=== PATIENT | male | born 1995 | race Hispanic/Latino ===

== ENCOUNTER 2016-05-16 22:15 | Inpatient (IN) | payer OTHER ==
[~2016-05-16] VITALS: Ht 185.4 cm; Wt 88.5 kg
[2016-05-16] MEDS: SENOKOT S TAB PO SCH (03:01)
[2016-05-16] MEDS ORDERED: ONDANSETRON 4MG/2ML VIAL (J2405) As Ordered ONE (23:10)
[2016-05-16] MEDS ORDERED: KETOROLAC 30 MG/ML VIAL (J1885) As Ordered ONE (23:10)
[2016-05-16 23:44] LABS: BASO % 0.4 % (0.0-1.0); EOS # 0.2 K/mm3 (0.0-0.50); EOS % 1.5 % (0.0-3.0); LARGE UNSTAINED CELL # 0.1 K/mm3 (0.0-0.4); LARGE UNSTAINED CELL % 1.4 % (0.0-4.0); LYMPH # 1.7 K/mm3 (1.5-6.5); LYMPH % 17.2 % (24.0-44.0); MEAN CORPUSCULAR HEMOGLOBIN 30.8 pg (27.0-33.0); MEAN CORPUSCULAR VOLUME 85.7 fl (80.0-96.0); MONO # 0.5 K/mm3 (0.0-0.8); NEUTROPHILS # 7.5 K/mm3 (1.8-7.7); NEUTROPHILS % 74.5 % (36.0-66.0); PLATELET COUNT, AUTOMATED 204 k/mm3 (150-450); RED CELL DISTRIBUTION WIDTH 12.1 % (11.5-14.5); WHITE BLOOD COUNT 10.1 K/mm3 (4.0-10.0)
[2016-05-16] MEDS ORDERED: ZANT1TAB PO (23:55)
[2016-05-16] MEDS ORDERED: CIPR500T89 PO (23:55)
[2016-05-16] MEDS ORDERED: TUMS500C PO (23:55)
[2016-05-16 23:59] LABS: ALBUMIN 4.4 GM/DL (3.2-5.2); ALBUMIN/GLOBULIN RATIO 1.22 (1.00-1.93); ALKALINE PHOSPHATASE 72 U/L (45-117); ALT/SGPT 29 U/L (12-78); AMYLASE 50 U/L (25-115); ANION GAP 7 MEQ/L (8-16); AST/SGOT 26 U/L (15-37); BILIRUBIN,DIRECT < 0.1 MG/DL (0.0-0.2); BILIRUBIN,TOTAL 0.5 MG/DL (0.2-1.0); BLOOD UREA NITROGEN 13 MG/DL (7-18); CARBON DIOXIDE LEVEL 28 MEQ/L (21-32); CHLORIDE LEVEL 104 MEQ/L (98-107); CREATININE FOR GFR 0.87 MG/DL (0.70-1.30); GLUCOSE, FASTING 98 MG/DL (70-105); POTASSIUM SERUM 3.7 MEQ/L (3.5-5.1); SODIUM LEVEL 139 MEQ/L (136-145)
[2016-05-17] VITALS (8 sets, daily range): BP systolic 105–152; BP diastolic 56–87
--- NOTE | 2016-05-17 00:10 | REPUSA ---
Clinical history: Right upper quadrant pain. Findings: The pancreas is limited in visualization secondary to overlying bowel gas, but appears moni sly unremarkable. The liver demonstrates uniform echotexture and echogenicity, with no mass lesions. The gallbladder is unremarkable. The common bile duct measures 3 mm and is within normal limits. The right kidney measures 11.4 cm in length and is unremarkable. There is no ascites. Impression: Unremarkable ultrasound examination of the right upper quadrant.
[2016-05-17] MEDS ORDERED: ZOSYN 3.375 GM VIAL (J2543) As Ordered ONE (00:11)
[2016-05-17] MEDS ORDERED: ONDANSETRON 4MG/2ML VIAL (J2405) IV PRN ×2 (00:45→19:15)
[2016-05-17] MEDS ORDERED: PERCOCET 5MG/325MG TAB PO PRN ×3 (00:45→19:15)
[2016-05-17] MEDS ORDERED: MORPHINE 4 MG/ML 1ML SYRINGE IV PRN (00:45)
[2016-05-17] MEDS ORDERED: ACETAMINOPHEN TAB 650MG DOSE (2X325MG) PO PRN (00:45)
--- NOTE | 2016-05-17 01:19 | EDDOCDS ---
Physician Documentation [facility] Name: Krissy Adhikari Age: 20 yrs Sex: Male : 1995 Arrival Date: 05/16/2016 Time: 22:15 Bed I3 / M3 Private MD: Other - Complete Info On Cds Disposition: 05/17/16 00:02 Hospitalization ordered by Miguel Valencia for Inpatient Admission. Preliminary diagnosis is Acute cholecystitis. - Bed requested for 5 Mendez. - Status is Inpatient Admission. nn1 - Condition is Stable. - Problem is new. - Symptoms have improved. Historical: - Allergies: no known allergies; - Home Meds: 1. Zantac 150 mg Oral cap 1 cap PRN (Last dose: 05/16/2016 20:00) 2. Tums 200 mg calcium (500 mg) Oral chew 500 mg as needed (Last dose: 05/15/2016) 3. Cipro 500 mg Oral tab 1 tab 2 times per day (Last dose: 05/16/2016 18:00) - PMHx: none; - PSHx: none; - Social history: Smoking status: Patient uses tobacco products, heavy tobacco smoker. Patient/guardian denies using alcohol, street drugs, No barriers to communication noted, The patient speaks fluent Zambian, Speaks appropriately for age. - Family history: No immediate family members are acutely ill. - : The pt / caregiver states he / she is not on anticoagulants. Home medication list is obtained from the patient. - Exposure Risk Screening:: None identified. Vital Signs: 05/16 22:17 BP 154 / 77; Pulse 67; Resp 18; Temp 97.0(O); Pulse Ox 100% on R/A; Weight 88.45 kg / gr2 195 lbs (R); Height 6 ft. 1 in. (185.42 cm) (R); Pain 8/10; 05/17 01:09 BP 134 / 80; Pulse 59; Resp 18; Temp 98.5(TE); Pulse Ox 99% on R/A; Pain 0/10; nn1 05/16 22:17 Body Mass Index 25.73 (88.45 kg, 185.42 cm) gr2 MDM: 05/16 23:06 NS 0.9% 1000 ml IV at bolus once ordered. ef1 23:07 Ondansetron 4 mg IVP once ordered. ef1 23:07 ketorolac 30 mg IVP once ordered. ef1 23:07 IV Saline Lock ordered. ef1 23:07 Undress patient appropriately for examination ordered. ef1 23:07 Gallbladder US Ordered. EDMS 23:07 Amylase Ordered. EDMS 23:07 Basic Metabolic Profile Ordered. EDMS 23:07 CBC with Diff Ordered. EDMS 23:07 Lipase Ordered. EDMS 23:07 Liver Profile Ordered. EDMS 23:08 NOTHING BY MOUTH+DIET ordered. EDMS 23:37 Financial registration complete. slh 23:46 CBC with Diff Reviewed. ef1 23:47 BED REQUEST+ADM ordered. EDMS 05/17 00:01 Piperacillin-Tazobactam 3.375 grams IVPB once over 30 mins; dilute in 50mL of NS or D5W ef1 ordered. 00:01 Basic Metabolic Profile Reviewed. ef1 00:01 Amylase Reviewed. ef1 00:01 Lipase Reviewed. ef1 00:01 Liver Profile Reviewed. ef1 00:24 [facility] Payment Agreement was scanned into [employer] and attached to record. slh 00:43 CBC WITH DIFFERENTIAL Ordered. EDMS 00:43 COMPLETE COMPHRENSIVE METABOLI Ordered. EDMS 00:44 Admission / Observation Status ordered. EDMS 00:45 NPO DIET ordered. EDMS Administered Medications: 05/16 23:24 Drug: NS 0.9% 1000 ml [sodium chloride 0.9 % intravenous solution] Route: IV; Rate: nn1 bolus; Site: left antecubital; 23:25 Drug: Ondansetron 4 mg [ondansetron HCl 2 mg/mL intravenous solution (2 mL)] Route: nn1 IVP; Site: left antecubital; 23:25 Drug: ketorolac 30 mg [ketorolac 30 mg/mL (1 mL) injection solution (1 mL)] Route: IVP; nn1 Site: left antecubital; 05/17 00:21 Drug: Piperacillin-Tazobactam 3.375 grams [piperacillin-tazobactam 3.375 gram nn1 intravenous solution] Route: IVPB; Infused Over: 30 mins; Site: left antecubital; 01:19 Follow up: IV Status: Completed infusion nn1 Signatures: Dispatcher [employer] EDMS Paulina Paez PA-C PA-C ef1 Argelia Crabtree, RN RN ttb McLear, Tiesha, REED OR WIND INSTRUMENT REPAIRER REED OR WIND INSTRUMENT REPAIRER tmm1 Perlita Blanco Nikkole,RN RN nn1 The chart was reviewed and I authenticate all verbal orders and agree with the evaluation and treatment provided.Attachments: 00:24 [facility] Payment Agreement [facility] MTDD
--- NOTE | 2016-05-17 01:19 | EDDOCDS ---
Nurse's Notes [facility] Name: Krissy Adhikari Age: 20 yrs Sex: Male : 1995 Arrival Date: 05/16/2016 Time: 22:15 Bed I3 / M3 Private MD: Other - Complete Info On Cds Diagnosis: Acute cholecystitis Presentation: 05/16 22:29 Presenting complaint: Patient states: abd pain x1 month. Intermittent pain. Returned 2 ttb hrs ago. Epigastric region. Laying on couch when pain started. Denies n/v/d/c. Risk factors: the patient reports not having a history of previous torsion. Adult Sepsis Screening: The patient does not have new or worsening altered mentation. Patient's respiratory rate is less than 22. Systolic blood pressure is greater than 100. Patient has a qSOFA score of 0- Negative Sepsis Screen. Suicide/Homicide risk assessment- the patient denies having any suicidal and/or homicidal ideations and does not present with any other emotional, behavioral or mental health complaints. 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 Transition of care: patient was not received from another setting of care. 22:29 Acuity: FEI Level 3 ttb 22:29 Method Of Arrival: Walkin/Carried/Asstd ttb Triage Assessment: 22:32 General: Appears in no apparent distress, well nourished, well groomed, Behavior is ttb appropriate for age, cooperative, pleasant. Pain: Location: 8/10 mid upper /epigastric region Pain does not radiate. Quality of pain is described as pressure, sharp. HIV screening NA for this visit Offered previously. Neurological: Level of Consciousness is awake, alert. Cardiovascular: Chest pain is denied. Respiratory: No deficits noted. Airway is patent Respiratory effort is even, unlabored, Denies cough, shortness of breath. GI: Reports upper abd pain, Denies constipation, diarrhea, nausea, vomiting. Derm: Skin is normal. Injury Description: No known injury. Historical: - Allergies: no known allergies; - Home Meds: 1. Zantac 150 mg Oral cap 1 cap PRN (Last dose: 05/16/2016 20:00) 2. Tums 200 mg calcium (500 mg) Oral chew 500 mg as needed (Last dose: 05/15/2016) 3. Cipro 500 mg Oral tab 1 tab 2 times per day (Last dose: 05/16/2016 18:00) - PMHx: none; - PSHx: none; - Social history: Smoking status: Patient uses tobacco products, heavy tobacco smoker. Patient/guardian denies using alcohol, street drugs, No barriers to communication noted, The patient speaks fluent South Korean, Speaks appropriately for age. - Family history: No immediate family members are acutely ill. - : The pt / caregiver states he / she is not on anticoagulants. Home medication list is obtained from the patient. - Exposure Risk Screening:: None identified. Screenin/06 01:08 Screening information is obtained from the patient. Fall risk: No risks identified. nn1 Assistance ADL's: requires no assistance with activities of daily living. Abuse/DV Screen: The patient / caregiver reports he/she is: not in a situation that causes fear, pain or injury. Nutritional screening: No deficits noted. Advance Directives: There is no active DNR order. home support is adequate. Assessment: 05/16 23:25 General: Appears in no apparent distress, comfortable. Pain: Location: epigastric area, nn1 umbilical area and suprapubic area Pain Pain does not radiate. Quality of pain is described as pressure, sharp, Pain began 1830. Neurological: Level of Consciousness is awake, alert, Oriented to person, place, time. Respiratory: Airway is patent Respiratory effort is even, unlabored, Respiratory pattern is regular, symmetrical. GI: Abdomen is flat, non- distended Bowel sounds present X 4 quads. Abd is soft X 4 quads. GI: Denies diarrhea, nausea, vomiting. Derm: Skin is pink, warm & dry. 05/17 00:21 Reassessment: Patient states feeling better. Patient states symptoms have improved. nn1 General: Appears in no apparent distress, comfortable. Respiratory: Airway is patent Respiratory effort is even, unlabored, Respiratory pattern is regular, symmetrical. 00:21 General: Patient reports last eating at 1830. nn1 01:08 General: Appears in no apparent distress, comfortable, Behavior is appropriate for age, nn1 cooperative. Pain: Denies pain. Neurological: Level of Consciousness is awake, alert, Oriented to person, place, time. Respiratory: Airway is patent Respiratory effort is even, unlabored, Respiratory pattern is regular, symmetrical. Derm: Skin is pink, warm & dry. Vital Signs: 05/16 22:17 BP 154 / 77; Pulse 67; Resp 18; Temp 97.0(O); Pulse Ox 100% on R/A; Weight 88.45 kg gr2 (R); Height 6 ft. 1 in. (185.42 cm) (R); Pain 8/10; 05/17 01:09 BP 134 / 80; Pulse 59; Resp 18; Temp 98.5(TE); Pulse Ox 99% on R/A; Pain 0/10; nn1 05/16 22:17 Body Mass Index 25.73 (88.45 kg, 185.42 cm) gr2 Vitals: 05/16 22:17 Log In Time: May 16, 2016 at 22:17. gr2 ED Course: 22:16 Patient visited by Roshan Roldan. gr2 22:16 Patient moved to Waiting gr2 22:17 Other - Complete Info On Cds is Private Physician. gr2 22:18 Patient visited by Roshan Roldan. gr2 22:18 Patient moved to Pre RCE gr2 22:31 Triage Initiated ttb 22:33 Patient visited by Argelia Crabtree RN. ttb 22:36 Patient moved to Triage 2 jmb 22:52 Paulina Paez PA-C is PHCP. ef1 22:52 Martin Gordon DO is Attending Physician. ef1 22:54 Patient visited by Paulina Paez PA-C. ef1 23:07 Patient moved to I3 / M3 jmb 23:25 Liver Profile Sent. nn1 23:25 Lipase Sent. nn1 23:25 CBC with Diff Sent. nn1 23:25 Basic Metabolic Profile Sent. nn1 23:25 Amylase Sent. nn1 23:27 Patient visited by Roxy Barcenas RN. nn1 23:27 Inserted saline lock: 20 gauge in left antecubital area and blood collected. The nn1 patient tolerated the procedure well. 05/17 00:01 Patient visited by Paulina Paez PA-C. ef1 00:02 Miguel Valencia MD is Hospitalizing Provider. ef1 00:24 [facility] Payment Agreement was scanned into [employer] and attached to record. h 00:33 Gallbladder US Returned. EDMS 01:10 The patient / caregiver is instructed regarding the plan of care and ED course. nn1 01:10 No procedures done that require assistance. nn1 Administered Medications: 05/16 23:24 Drug: NS 0.9% 1000 ml [sodium chloride 0.9 % intravenous solution] Route: IV; Rate: nn1 bolus; Site: left antecubital; 23:25 Drug: Ondansetron 4 mg [ondansetron HCl 2 mg/mL intravenous solution (2 mL)] Route: nn1 IVP; Site: left antecubital; 23:25 Drug: ketorolac 30 mg [ketorolac 30 mg/mL (1 mL) injection solution (1 mL)] Route: IVP; nn1 Site: left antecubital; 05/17 00:21 Drug: Piperacillin-Tazobactam 3.375 grams [piperacillin-tazobactam 3.375 gram nn1 intravenous solution] Route: IVPB; Infused Over: 30 mins; Site: left antecubital; 01:19 Follow up: IV Status: Completed infusion nn1 Order Results: Lab Order: Amylase; SPEC'M 05/16/16 23:12 Test: AMYLASE; Value: 50; Range: 25-115; Units: U/L; Status: F Lab Order: Basic Metabolic Profile; SPEC'M 05/16/16 23:12 Test: GLUCOSE, FASTING; Value: 98; Range: 70-105; Units: MG/DL; Status: F Test: BLOOD UREA NITROGEN; Value: 13; Range: 7-18; Units: MG/DL; Status: F Test: CREATININE FOR GFR; Value: 0.87; Range: 0.70-1.30; Units: MG/DL; Status: F Test: SODIUM LEVEL; Value: 139; Range: 136-145; Units: MEQ/L; Status: F Test: POTASSIUM SERUM; Value: 3.7; Range: 3.5-5.1; Units: MEQ/L; Status: F Test: CHLORIDE LEVEL; Value: 104; Range: 98-107; Units: MEQ/L; Status: F Test: CARBON DIOXIDE LEVEL; Value: 28; Range: 21-32; Units: MEQ/L; Status: F Test: ANION GAP; Value: 7; Range: 8-16; Abnormal: Below low normal; Units: MEQ/L; Status: F Test: CALCIUM LEVEL; Value: 9.0; Range: 8.5-10.1; Units: MG/DL; Status: F Lab Order: CBC with Diff; SPEC'M 05/16/16 23:12 Test: WHITE BLOOD COUNT; Value: 10.1; Range: 4.0-10.0; Abnormal: Above high normal; Units: K/mm3; Status: F Test: RED BLOOD COUNT; Value: 5.45; Range: 4.30-6.10; Units: M/mm3; Status: F Test: HEMOGLOBIN; Value: 16.8; Range: 14.0-18.0; Units: g/dl; Status: F Test: HEMATOCRIT; Value: 46.6; Range: 42.0-52.0; Units: %; Status: F Test: MEAN CORPUSCULAR VOLUME; Value: 85.7; Range: 80.0-96.0; Units: fl; Status: F Test: MEAN CORPUSCULAR HEMOGLOBIN; Value: 30.8; Range: 27.0-33.0; Units: pg; Status: F Test: MEAN CORPUSCULAR HGB CONC; Value: 36.0; Range: 32.0-36.5; Units: g/dl; Status: F Test: RED CELL DISTRIBUTION WIDTH; Value: 12.1; Range: 11.5-14.5; Units: %; Status: F Test: PLATELET COUNT, AUTOMATED; Value: 204; Range: 150-450; Units: k/mm3; Status: F Test: NEUTROPHILS %; Value: 74.5; Range: 36.0-66.0; Abnormal: Above high normal; Units: %; Status: F Test: LYMPH %; Value: 17.2; Range: 24.0-44.0; Abnormal: Below low normal; Units: %; Status: F Test: MONO %; Value: 5.0; Range: 0.0-5.0; Units: %; Status: F Test: EOS %; Value: 1.5; Range: 0.0-3.0; Units: %; Status: F Test: BASO %; Value: 0.4; Range: 0.0-1.0; Units: %; Status: F Test: LARGE UNSTAINED CELL %; Value: 1.4; Range: 0.0-4.0; Units: %; Status: F Test: NEUTROPHILS #; Value: 7.5; Range: 1.8-7.7; Units: K/mm3; Status: F Test: LYMPH #; Value: 1.7; Range: 1.5-6.5; Units: K/mm3; Status: F Test: MONO #; Value: 0.5; Range: 0.0-0.8; Units: K/mm3; Status: F Test: EOS #; Value: 0.2; Range: 0.0-0.50; Units: K/mm3; Status: F Test: BASO #; Value: 0.0; Range: 0.0-0.2; Units: K/mm3; Status: F Test: LARGE UNSTAINED CELL #; Value: 0.1; Range: 0.0-0.4; Units: K/mm3; Status: F Lab Order: Lipase; SPEC'M 05/16/16 23:12 Test: LIPASE; Value: 150; Range: 73-393; Units: U/L; Status: F Lab Order: Liver Profile; SPEC'M 05/16/16 23:12 Test: AST/SGOT; Value: 26; Range: 15-37; Units: U/L; Status: F Test: ALT/SGPT; Value: 29; Range: 12-78; Units: U/L; Status: F Test: ALKALINE PHOSPHATASE; Value: 72; Range: 45-117; Units: U/L; Status: F Test: BILIRUBIN,TOTAL; Value: 0.5; Range: 0.2-1.0; Units: MG/DL; Status: F Test: BILIRUBIN,DIRECT; Value: < 0.1; Range: 0.0-0.2; Units: MG/DL; Status: F Test: TOTAL PROTEIN; Value: 8.0; Range: 6.4-8.2; Units: GM/DL; Status: F Test: ALBUMIN; Value: 4.4; Range: 3.2-5.2; Units: GM/DL; Status: F Test: ALBUMIN/GLOBULIN RATIO; Value: 1.22; Range: 1.00-1.93; Status: F Radiology Order: Gallbladder US Test: Gallbladder US REASON FOR EXAMINATION: Biliary Colic; ; Clinical history: Right upper quadrant pain.; Findings: The pancreas is limited in visualization secondary to overlying bowel gas, but appears moni; sly unremarkable. The liver demonstrates uniform echotexture and echogenicity, with no mass lesions.; The gallbladder is unremarkable. The common bile duct measures 3 mm and is within normal limits. The; right kidney measures 11.4 cm in length and is unremarkable. There is no ascites.; Impression: Unremarkable ultrasound examination of the right upper quadrant.; ; Outcome: 00:02 Decision to Hospitalize by Provider. ef1 01:08 Discharge Assessment: Patient awake, alert and oriented x 3. No cognitive and/or nn1 functional deficits noted. Patient verbalized understanding of disposition instructions. patient administered narcotics - yes. Patient was admitted to the hospital or transferred to another facility. The following High Risk Discharge criteria are identified: None. Admitted to Med/Surg accompanied by tech, with chart. Condition: stable. Property :Personal belongings accompany Pt. 01:09 Ultrasound Study completed. nn1 01:18 Patient left the ED. nn1 Signatures: Dispatcher [employer] EDMS Paulina Paez, PA-C PA-C ef1 Argelia Crabtree, RN RN Roshan Huang gr2 Jamal Montanez,RN RN Perlita Rowe NikkoleRN RN nn1 MTDD
[2016-05-17] MEDS: LR 1,000 ML IV SCH ×3 (02:04→16:34)
[2016-05-17] MEDS: AMPICILLIN SOD/SULBACTAM SOD 3 GM in D5W MINI-BAG PLUS 100 ML IV SCH ×5 (04:00→22:31)
[2016-05-17 07:01] LABS: BASO % 0.4 % (0.0-1.0); EOS # 0.1 K/mm3 (0.0-0.50); EOS % 2.3 % (0.0-3.0); LARGE UNSTAINED CELL # 0.1 K/mm3 (0.0-0.4); LARGE UNSTAINED CELL % 2.1 % (0.0-4.0); LYMPH # 1.8 K/mm3 (1.5-6.5); LYMPH % 28.7 % (24.0-44.0); MEAN CORPUSCULAR HEMOGLOBIN 30.2 pg (27.0-33.0); MEAN CORPUSCULAR HGB CONC 35.1 g/dl (32.0-36.5); MONO # 0.4 K/mm3 (0.0-0.8); MONO % 5.8 % (0.0-5.0); NEUTROPHILS # 3.8 K/mm3 (1.8-7.7); NEUTROPHILS % 60.8 % (36.0-66.0); PLATELET COUNT, AUTOMATED 171 k/mm3 (150-450); RED CELL DISTRIBUTION WIDTH 12.1 % (11.5-14.5); WHITE BLOOD COUNT 6.3 K/mm3 (4.0-10.0)
[2016-05-17 07:21] LABS: ALBUMIN 3.6 GM/DL (3.2-5.2); ALKALINE PHOSPHATASE 58 U/L (45-117); ALT/SGPT 22 U/L (12-78); ANION GAP 8 MEQ/L (8-16); AST/SGOT 17 U/L (15-37); BILIRUBIN,TOTAL 0.5 MG/DL (0.2-1.0); BLOOD UREA NITROGEN 12 MG/DL (7-18); CALCIUM LEVEL 8.6 MG/DL (8.5-10.1); CARBON DIOXIDE LEVEL 27 MEQ/L (21-32); CHLORIDE LEVEL 109 MEQ/L (98-107); CREATININE FOR GFR 0.97 MG/DL (0.70-1.30); GLUCOSE, FASTING 89 MG/DL (70-105); POTASSIUM SERUM 3.8 MEQ/L (3.5-5.1); SODIUM LEVEL 144 MEQ/L (136-145); TOTAL PROTEIN 6.6 GM/DL (6.4-8.2)
[2016-05-17] MEDS ORDERED: ENOXAPARIN 40 MG/0.4 ML SYRINGE (J1650) SC SCH (09:00)
[2016-05-17] MEDS: SENOKOT S TAB PO SCH ×2 (10:31→20:15)
--- NOTE | 2016-05-17 15:16 | HPE ---
DATE OF ADMISSION: 05/17/2016 CHIEF COMPLAINT: Abdominal pain. HISTORY OF PRESENT ILLNESS: Mr. 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 Patient reports having had similar symptoms before, at least for the past month. Has been occurring quite often. He was in [place] during [place] and he had another episode similar in severity as this one. He was seen in an urgent care setting, was diagnosed to have a urinary tract infection (UTI), was started on Cipro and has been taking Cipro up until today. Despite this, he still has on and off pain at least once a day, usually early in the morning, sometimes makes him up at night. This current episode started roughly about 6 p.m. after eating grilled cheese. Rates it about 7 or 8 out of 10, associated with nausea. Started at the epigastric going towards his mid-back area. He describes it as sharp and boring. It radiates to the right upper quadrant area. He was seen at the emergency room, evaluated, and was subsequently diagnosed with acute cholecystitis. He denies any prior abdominal surgeries. ALLERGIES: No known drug allergies. HOME MEDICATIONS: - Zantac 150 mg as needed for epigastric pain - Tums 500 mg as needed for epigastric pain - ciprofloxacin one tablet twice a day since 05/07/2016 PAST MEDICAL HISTORY: None. No chronic medical problems. PAST SURGICAL HISTORY: [place] teeth removal. No history of general anesthesia. 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 Denies regular alcohol use. Denies recreational drug use. FAMILY HISTORY: Not pertinent. EXPOSURE HISTORY: He has traveled to [place] in the past week. No overseas travel. REVIEW OF SYSTEMS: Before his on and off epigastric pain, he is a healthy young soldier. He is able to carry out his duties without any chest pain, shortness of breath. No headaches, strokes, or seizures. Denies any dysuria, hematuria, nocturia. As mentioned, was diagnosed to have a UTI, but more than a week ago. Denies history of diabetes or other endocrine problems. Denies any bleeding or clotting disorder. Denies severe psychiatric impairment. EXAMINATION ON ARRIVAL TO THE EMERGENCY DEPARTMENT: At 2217, blood pressure 154/77, pulse rate 67, respiratory rate of 18, temperature of 97, pulse oximetry reading 100% on room air. Height 180.7 cm, weight 80 kilos, but body mass index (BMI) of 25. Pain rated 8 out of 10. LATEST VITALS HERE ON THE FLOOR: Temperature of 97, pulse rate of 57, respiratory rate 14, blood pressure of 105/56, 98% on room air. EXAMINATION: Patient laying in bed, appears fairly comfortable. Not in any acute distress. SKIN: Warm and dry. Head is normocephalic, atraumatic. [place] palpebral conjunctivae. Anicteric sclerae. Lips appear mildly dry. NECK: Supple. No lymphadenopathy. No thyromegaly. No chest wall abnormalities. LUNGS: Sounds are clear to auscultation bilaterally. No wheezing appreciated. HEART: Rate and rhythm are regular with no murmurs. ABDOMEN: Flat, soft, nondistended. Minimal tenderness over the right upper quadrant area. Equivocal Norris sign. No umbilical herniations appreciated. No hepatosplenomegaly. No masses appreciated. EXTREMITIES: No deformities. No edema noted. LABORATORIES: White cell count 10.1, hemoglobin 16.8, hematocrit 46.6, platelet count is 204, neutrophils 75%. Chemistries: Sodium 139, potassium 3.7, chloride is 104, BUN of 13, creatinine 0.87, CO2 28. LFTs are normal including total bilirubin 0.5, AST of 26, ALT of 29, alkaline phosphatase is 72, lipase is 150. In the emergency room (ER), imaging studies done include ultrasound of the gallbladder. This was read as unremarkable gallbladder, common bile duct of 3 mm. Though on looking at it, there is gallbladder wall thickening and it is positive for cholelithiasis, and the smt technician made note of positive sonographic Norris's. IMPRESSION: 1. Cholelithiasis. 2. Acute cholecystitis. PLAN: Though patient has been symptomatic, at least for a week and has been on oral antibiotics, he continues to have intermittent pain, probably in terms of biliary cholic attacks, with evidence for gallbladder wall thickening to suggest cholecystitis being acute or subacute in nature. 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 We will schedule him for a laparoscopic cholecystectomy. I discussed with him the details of the procedure, risks and benefits, which includes risks for bile duct injury and bile leakage, possibility of doing a cholangiogram, possibility of doing an open gallbladder surgery. Patient has given a consent. He has been started on Unasyn for coverage of multi-gram negatives at his age should be sufficient.
[2016-05-17] MEDS ORDERED: CONRAY-60 60% 50ML VIAL (Q9961) As Ordered ONE (17:00)
[2016-05-17] MEDS ORDERED: LIDOCAINE 1% SDV INJ 30 ML VIAL As Ordered ONE (17:00)
[2016-05-17] MEDS ORDERED: BUPIVACAINE HCL 0.25% 30 ML VIAL As Ordered ONE (17:00)
[2016-05-17] MEDS ORDERED: ONDANSETRON 4MG/2ML VIAL (J2405) As Ordered ONE (17:29)
[2016-05-17] MEDS ORDERED: fentaNYL 250 MCG/5 ML INJECTION (J3010) As Ordered ONE (17:29)
[2016-05-17] MEDS ORDERED: MIDAZOLAM INJ 2 MG/2 ML VIAL (J2250) As Ordered ONE (17:29)
[2016-05-17] MEDS ORDERED: PROPOFOL 200 MG/20 ML VIAL As Ordered ONE (17:29)
[2016-05-17] MEDS ORDERED: GLYCOPYRROLATE INJ 0.2 MG/ML 2 ML VIAL As Ordered ONE (17:30)
[2016-05-17] MEDS ORDERED: ROCURONIUM BROMIDE 50 MG/5 ML VIAL As Ordered ONE (17:30)
[2016-05-17] MEDS ORDERED: NEOSTIGMINE 1MG/ML 5 ML SYRINGE (J2710) As Ordered ONE (17:30)
[2016-05-17] MEDS ORDERED: KETOROLAC 60 MG/2 ML VIAL (J1885) As Ordered ONE (17:30)
[2016-05-17] MEDS ORDERED: dexameTHASONE 4 MG/ML 1ML VIAL (J1100) As Ordered ONE (17:30)
[2016-05-17] MEDS ORDERED: METOCLOPRAMIDE INJ 10MG/2ML VIAL (J2765) As Ordered ONE (17:30)
[2016-05-17] MEDS ORDERED: LIDOCAINE 2% INJ 100 MG/5 ML SDV (FOR ANES.) As Ordered ONE (17:30)
[2016-05-17] MEDS ORDERED: HYDROmorphone HCL 2 MG/ML 1ML VIAL (J1170) As Ordered ONE (17:31)
[2016-05-17] MEDS ORDERED: UNASYN 1.5 GM VIAL As Ordered ONE (17:33)
[2016-05-17] MEDS ORDERED: LIDOCAINE 1% SDV INJ 30 ML VIAL XX ONE (17:56)
[2016-05-17] MEDS ORDERED: BUPIVACAINE HCL 0.25% 30 ML VIAL XX ONE (17:56)
[2016-05-17] MEDS ORDERED: METOCLOPRAMIDE INJ 10MG/2ML VIAL (J2765) IV PRN (19:15)
[2016-05-17] MEDS ORDERED: LR 1,000 ML IV SCH (19:15)
[2016-05-17] MEDS ORDERED: fentaNYL 100 MCG/2 ML INJECTION (J3010) IV PRN (19:15)
[2016-05-17] MEDS ORDERED: KETOROLAC 30 MG/ML VIAL (J1885) IV PRN (19:15)
[2016-05-17] MEDS ORDERED: MEPERIDINE INJ 25 MG/ML VIAL (J2175) IV PRN (19:15)
[2016-05-18] VITALS: BP 126/57
[2016-05-18] MEDS: LR 1,000 ML IV SCH (00:34)
[2016-05-18 04:00] VITALS: BP 135/69
[2016-05-18] MEDS: AMPICILLIN SOD/SULBACTAM SOD 3 GM in D5W MINI-BAG PLUS 100 ML IV SCH ×2 (04:10→09:29)
[2016-05-18 06:52] LABS: BASO % 0.1 % (0.0-1.0); EOS % 0.1 % (0.0-3.0); LARGE UNSTAINED CELL # 0.1 K/mm3 (0.0-0.4); LARGE UNSTAINED CELL % 0.9 % (0.0-4.0); LYMPH # 1.1 K/mm3 (1.5-6.5); LYMPH % 9.4 % (24.0-44.0); MEAN CORPUSCULAR HEMOGLOBIN 30.4 pg (27.0-33.0); MEAN CORPUSCULAR HGB CONC 35.5 g/dl (32.0-36.5); MEAN CORPUSCULAR VOLUME 85.7 fl (80.0-96.0); MONO # 0.4 K/mm3 (0.0-0.8); MONO % 3.5 % (0.0-5.0); NEUTROPHILS # 10.2 K/mm3 (1.8-7.7); PLATELET COUNT, AUTOMATED 203 k/mm3 (150-450); WHITE BLOOD COUNT 11.8 K/mm3 (4.0-10.0)
[2016-05-18 07:11] LABS: ALBUMIN 3.8 GM/DL (3.2-5.2); ALBUMIN/GLOBULIN RATIO 1.19 (1.00-1.93); ALKALINE PHOSPHATASE 65 U/L (45-117); ALT/SGPT 36 U/L (12-78); ANION GAP 10 MEQ/L (8-16); AST/SGOT 29 U/L (15-37); BILIRUBIN,TOTAL 0.7 MG/DL (0.2-1.0); BLOOD UREA NITROGEN 10 MG/DL (7-18); CALCIUM LEVEL 8.9 MG/DL (8.5-10.1); CARBON DIOXIDE LEVEL 25 MEQ/L (21-32); CHLORIDE LEVEL 107 MEQ/L (98-107); GLUCOSE, FASTING 125 MG/DL (70-105); POTASSIUM SERUM 4.2 MEQ/L (3.5-5.1); SODIUM LEVEL 142 MEQ/L (136-145)
[2016-05-18 08:00] VITALS: BP 124/58
[2016-05-18] MEDS: SENOKOT S TAB PO SCH (09:29)
[2016-05-18 12:00] VITALS: BP 152/70
[2016-05-18 12:04] VITALS: BP 124/58
[2016-05-18] MEDS ORDERED: OXYC1TAB23 PO (13:14)
--- NOTE | 2016-05-19 02:20 | EDDOCDS ---
Nurse's Notes [facility] Name: Krissy Adhikari Age: 20 yrs Sex: Male : 1995 Arrival Date: 05/16/2016 Time: 22:15 Bed I3 / M3 Private MD: Other - Complete Info On Cds Diagnosis: Acute cholecystitis Presentation: 05/16 22:29 Presenting complaint: Patient states: abd pain x1 month. Intermittent pain. Returned 2 ttb hrs ago. Epigastric region. Laying on couch when pain started. Denies n/v/d/c. Risk factors: the patient reports not having a history of previous torsion. Adult Sepsis Screening: The patient does not have new or worsening altered mentation. Patient's respiratory rate is less than 22. Systolic blood pressure is greater than 100. Patient has a qSOFA score of 0- Negative Sepsis Screen. Suicide/Homicide risk assessment- the patient denies having any suicidal and/or homicidal ideations and does not present with any other emotional, behavioral or mental health complaints. 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 Transition of care: patient was not received from another setting of care. 22:29 Acuity: FEI Level 3 ttb 22:29 Method Of Arrival: Walkin/Carried/Asstd ttb Triage Assessment: 22:32 General: Appears in no apparent distress, well nourished, well groomed, Behavior is ttb appropriate for age, cooperative, pleasant. Pain: Location: 8/10 mid upper /epigastric region Pain does not radiate. Quality of pain is described as pressure, sharp. HIV screening NA for this visit Offered previously. Neurological: Level of Consciousness is awake, alert. Cardiovascular: Chest pain is denied. Respiratory: No deficits noted. Airway is patent Respiratory effort is even, unlabored, Denies cough, shortness of breath. GI: Reports upper abd pain, Denies constipation, diarrhea, nausea, vomiting. Derm: Skin is normal. Injury Description: No known injury. Historical: - Allergies: no known allergies; - Home Meds: 1. Zantac 150 mg Oral cap 1 cap PRN (Last dose: 05/16/2016 20:00) 2. Tums 200 mg calcium (500 mg) Oral chew 500 mg as needed (Last dose: 05/15/2016) 3. Cipro 500 mg Oral tab 1 tab 2 times per day (Last dose: 05/16/2016 18:00) - PMHx: none; - PSHx: none; - Social history: Smoking status: Patient uses tobacco products, heavy tobacco smoker. Patient/guardian denies using alcohol, street drugs, No barriers to communication noted, The patient speaks fluent Cook Islander, Speaks appropriately for age. - Family history: No immediate family members are acutely ill. - : The pt / caregiver states he / she is not on anticoagulants. Home medication list is obtained from the patient. - Exposure Risk Screening:: None identified. Screenin/06 01:08 Screening information is obtained from the patient. Fall risk: No risks identified. nn1 Assistance ADL's: requires no assistance with activities of daily living. Abuse/DV Screen: The patient / caregiver reports he/she is: not in a situation that causes fear, pain or injury. Nutritional screening: No deficits noted. Advance Directives: There is no active DNR order. home support is adequate. Assessment: 05/16 23:25 General: Appears in no apparent distress, comfortable. Pain: Location: epigastric area, nn1 umbilical area and suprapubic area Pain Pain does not radiate. Quality of pain is described as pressure, sharp, Pain began 1830. Neurological: Level of Consciousness is awake, alert, Oriented to person, place, time. Respiratory: Airway is patent Respiratory effort is even, unlabored, Respiratory pattern is regular, symmetrical. GI: Abdomen is flat, non- distended Bowel sounds present X 4 quads. Abd is soft X 4 quads. GI: Denies diarrhea, nausea, vomiting. Derm: Skin is pink, warm & dry. 05/17 00:21 Reassessment: Patient states feeling better. Patient states symptoms have improved. nn1 General: Appears in no apparent distress, comfortable. Respiratory: Airway is patent Respiratory effort is even, unlabored, Respiratory pattern is regular, symmetrical. 00:21 General: Patient reports last eating at 1830. nn1 01:08 General: Appears in no apparent distress, comfortable, Behavior is appropriate for age, nn1 cooperative. Pain: Denies pain. Neurological: Level of Consciousness is awake, alert, Oriented to person, place, time. Respiratory: Airway is patent Respiratory effort is even, unlabored, Respiratory pattern is regular, symmetrical. Derm: Skin is pink, warm & dry. Vital Signs: 05/16 22:17 BP 154 / 77; Pulse 67; Resp 18; Temp 97.0(O); Pulse Ox 100% on R/A; Weight 88.45 kg gr2 (R); Height 6 ft. 1 in. (185.42 cm) (R); Pain 8/10; 05/17 01:09 BP 134 / 80; Pulse 59; Resp 18; Temp 98.5(TE); Pulse Ox 99% on R/A; Pain 0/10; nn1 05/16 22:17 Body Mass Index 25.73 (88.45 kg, 185.42 cm) gr2 Vitals: 05/16 22:17 Log In Time: May 16, 2016 at 22:17. gr2 ED Course: 22:16 Patient visited by Roshan Roldan. gr2 22:16 Patient moved to Waiting gr2 22:17 Other - Complete Info On Cds is Private Physician. gr2 22:18 Patient visited by Roshan Roldan. gr2 22:18 Patient moved to Pre RCE gr2 22:31 Triage Initiated ttb 22:33 Patient visited by Argelia Crabtree RN. ttb 22:36 Patient moved to Triage 2 jmb 22:52 Paulina Paez PA-C is PHCP. ef1 22:52 Martin Gordon DO is Attending Physician. ef1 22:54 Patient visited by Paulina Paez PA-C. ef1 23:07 Patient moved to I3 / M3 jmb 23:25 Liver Profile Sent. nn1 23:25 Lipase Sent. nn1 23:25 CBC with Diff Sent. nn1 23:25 Basic Metabolic Profile Sent. nn1 23:25 Amylase Sent. nn1 23:27 Patient visited by Roxy Barcenas RN. nn1 23:27 Inserted saline lock: 20 gauge in left antecubital area and blood collected. The nn1 patient tolerated the procedure well. 05/17 00:01 Patient visited by Paulina Paez PA-C. ef1 00:02 Miguel Valencia MD is Hospitalizing Provider. ef1 00:24 [facility] [place] was [place] into [employer] and attached to record. h 00:33 Gallbladder US Returned. EDMS 01:10 The patient / caregiver is instructed regarding the plan of care and ED course. nn1 01:10 No procedures done that require assistance. nn1 07:19 T-Sheet-- Draft Copy was scanned into [employer] and attached to record. gb 11:54 Radiology Report was scanned into [employer] and attached to record. gb Administered Medications: 05/16 23:24 Drug: NS 0.9% 1000 ml [sodium chloride 0.9 % intravenous solution] Route: IV; Rate: nn1 bolus; Site: left antecubital; 23:25 Drug: Ondansetron 4 mg [ondansetron HCl 2 mg/mL intravenous solution (2 mL)] Route: nn1 IVP; Site: left antecubital; 23:25 Drug: ketorolac 30 mg [ketorolac 30 mg/mL (1 mL) injection solution (1 mL)] Route: IVP; nn1 Site: left antecubital; 05/17 00:21 Drug: Piperacillin-Tazobactam 3.375 grams [piperacillin-tazobactam 3.375 gram nn1 intravenous solution] Route: IVPB; Infused Over: 30 mins; Site: left antecubital; 01:19 Follow up: IV Status: Completed infusion nn1 Order Results: Lab Order: Amylase; SPEC'M 05/16/16 23:12 Test: AMYLASE; Value: 50; Range: 25-115; Units: U/L; Status: F Lab Order: Basic Metabolic Profile; SPEC'M 05/16/16 23:12 Test: GLUCOSE, FASTING; Value: 98; Range: 70-105; Units: MG/DL; Status: F Test: BLOOD UREA NITROGEN; Value: 13; Range: 7-18; Units: MG/DL; Status: F Test: CREATININE FOR GFR; Value: 0.87; Range: 0.70-1.30; Units: MG/DL; Status: F Test: SODIUM LEVEL; Value: 139; Range: 136-145; Units: MEQ/L; Status: F Test: POTASSIUM SERUM; Value: 3.7; Range: 3.5-5.1; Units: MEQ/L; Status: F Test: CHLORIDE LEVEL; Value: 104; Range: 98-107; Units: MEQ/L; Status: F Test: CARBON DIOXIDE LEVEL; Value: 28; Range: 21-32; Units: MEQ/L; Status: F Test: ANION GAP; Value: 7; Range: 8-16; Abnormal: Below low normal; Units: MEQ/L; Status: F Test: CALCIUM LEVEL; Value: 9.0; Range: 8.5-10.1; Units: MG/DL; Status: F Lab Order: CBC with Diff; SPEC'M 05/16/16 23:12 Test: WHITE BLOOD COUNT; Value: 10.1; Range: 4.0-10.0; Abnormal: Above high normal; Units: K/mm3; Status: F Test: RED BLOOD COUNT; Value: 5.45; Range: 4.30-6.10; Units: M/mm3; Status: F Test: HEMOGLOBIN; Value: 16.8; Range: 14.0-18.0; Units: g/dl; Status: F Test: HEMATOCRIT; Value: 46.6; Range: 42.0-52.0; Units: %; Status: F Test: MEAN CORPUSCULAR VOLUME; Value: 85.7; Range: 80.0-96.0; Units: fl; Status: F Test: MEAN CORPUSCULAR HEMOGLOBIN; Value: 30.8; Range: 27.0-33.0; Units: pg; Status: F Test: MEAN CORPUSCULAR HGB CONC; Value: 36.0; Range: 32.0-36.5; Units: g/dl; Status: F Test: RED CELL DISTRIBUTION WIDTH; Value: 12.1; Range: 11.5-14.5; Units: %; Status: F Test: PLATELET COUNT, AUTOMATED; Value: 204; Range: 150-450; Units: k/mm3; Status: F Test: NEUTROPHILS %; Value: 74.5; Range: 36.0-66.0; Abnormal: Above high normal; Units: %; Status: F Test: LYMPH %; Value: 17.2; Range: 24.0-44.0; Abnormal: Below low normal; Units: %; Status: F Test: MONO %; Value: 5.0; Range: 0.0-5.0; Units: %; Status: F Test: EOS %; Value: 1.5; Range: 0.0-3.0; Units: %; Status: F Test: BASO %; Value: 0.4; Range: 0.0-1.0; Units: %; Status: F Test: LARGE UNSTAINED CELL %; Value: 1.4; Range: 0.0-4.0; Units: %; Status: F Test: NEUTROPHILS #; Value: 7.5; Range: 1.8-7.7; Units: K/mm3; Status: F Test: LYMPH #; Value: 1.7; Range: 1.5-6.5; Units: K/mm3; Status: F Test: MONO #; Value: 0.5; Range: 0.0-0.8; Units: K/mm3; Status: F Test: EOS #; Value: 0.2; Range: 0.0-0.50; Units: K/mm3; Status: F Test: BASO #; Value: 0.0; Range: 0.0-0.2; Units: K/mm3; Status: F Test: LARGE UNSTAINED CELL #; Value: 0.1; Range: 0.0-0.4; Units: K/mm3; Status: F Lab Order: Lipase; SPEC'M 05/16/16 23:12 Test: LIPASE; Value: 150; Range: 73-393; Units: U/L; Status: F Lab Order: Liver Profile; SPEC'M 05/16/16 23:12 Test: AST/SGOT; Value: 26; Range: 15-37; Units: U/L; Status: F Test: ALT/SGPT; Value: 29; Range: 12-78; Units: U/L; Status: F Test: ALKALINE PHOSPHATASE; Value: 72; Range: 45-117; Units: U/L; Status: F Test: BILIRUBIN,TOTAL; Value: 0.5; Range: 0.2-1.0; Units: MG/DL; Status: F Test: BILIRUBIN,DIRECT; Value: < 0.1; Range: 0.0-0.2; Units: MG/DL; Status: F Test: TOTAL PROTEIN; Value: 8.0; Range: 6.4-8.2; Units: GM/DL; Status: F Test: ALBUMIN; Value: 4.4; Range: 3.2-5.2; Units: GM/DL; Status: F Test: ALBUMIN/GLOBULIN RATIO; Value: 1.22; Range: 1.00-1.93; Status: F Radiology Order: Gallbladder US Test: Gallbladder US REASON FOR EXAMINATION: Biliary Colic; ; Clinical history: Right upper quadrant pain.; Findings: The pancreas is limited in visualization secondary to overlying bowel gas, but appears moni; sly unremarkable. The liver demonstrates uniform echotexture and echogenicity, with no mass lesions.; The gallbladder is unremarkable. The common bile duct measures 3 mm and is within normal limits. The; right kidney measures 11.4 cm in length and is unremarkable. There is no ascites.; Impression: Unremarkable ultrasound examination of the right upper quadrant.; ; Outcome: 00:02 Decision to Hospitalize by Provider. ef1 01:08 Discharge Assessment: Patient awake, alert and oriented x 3. No cognitive and/or nn1 functional deficits noted. Patient verbalized understanding of disposition instructions. patient administered narcotics - yes. Patient was admitted to the hospital or transferred to another facility. The following High Risk Discharge criteria are identified: None. Admitted to Med/Surg accompanied by tech, with chart. Condition: stable. Property :Personal belongings accompany Pt. 01:09 Ultrasound Study completed. nn1 01:18 Patient left the ED. nn1 Signatures: Dispatcher [employer] EDMS Jeniffer Middleton, Paulina Rodriguez, PA-C PA-C ef1 Argelia Crabtree, RN RN Roshan Huang gr2 Jamal Montanez RN RN jmb Hook, Sandra slh Nunez, NikkoleRN RN nn1 Chart Complete MTDD
--- NOTE | 2016-05-19 02:20 | EDDOCDS ---
Physician Documentation [facility] Name: Krissy Adhikari Age: 20 yrs Sex: Male : 1995 Arrival Date: 05/16/2016 Time: 22:15 Bed I3 / M3 Private MD: Other - Complete Info On Cds Disposition: 05/17/16 00:02 Hospitalization ordered by Miguel Valencia for Inpatient Admission. Preliminary diagnosis is Acute cholecystitis. - Bed requested for 5 Mendez. - Status is Inpatient Admission. nn1 - Condition is Stable. - Problem is new. - Symptoms have improved. Historical: - Allergies: no known allergies; - Home Meds: 1. Zantac 150 mg Oral cap 1 cap PRN (Last dose: 05/16/2016 20:00) 2. Tums 200 mg calcium (500 mg) Oral chew 500 mg as needed (Last dose: 05/15/2016) 3. Cipro 500 mg Oral tab 1 tab 2 times per day (Last dose: 05/16/2016 18:00) - PMHx: none; - PSHx: none; - Social history: Smoking status: Patient uses tobacco products, heavy tobacco smoker. Patient/guardian denies using alcohol, street drugs, No barriers to communication noted, The patient speaks fluent Vietnamese, Speaks appropriately for age. - Family history: No immediate family members are acutely ill. - : The pt / caregiver states he / she is not on anticoagulants. Home medication list is obtained from the patient. - Exposure Risk Screening:: None identified. Vital Signs: 05/16 22:17 BP 154 / 77; Pulse 67; Resp 18; Temp 97.0(O); Pulse Ox 100% on R/A; Weight 88.45 kg / gr2 195 lbs (R); Height 6 ft. 1 in. (185.42 cm) (R); Pain 8/10; 05/17 01:09 BP 134 / 80; Pulse 59; Resp 18; Temp 98.5(TE); Pulse Ox 99% on R/A; Pain 0/10; nn1 05/16 22:17 Body Mass Index 25.73 (88.45 kg, 185.42 cm) gr2 MDM: 05/16 23:06 NS 0.9% 1000 ml IV at bolus once ordered. ef1 23:07 Ondansetron 4 mg IVP once ordered. ef1 23:07 ketorolac 30 mg IVP once ordered. ef1 23:07 IV Saline Lock ordered. ef1 23:07 Undress patient appropriately for examination ordered. ef1 23:07 Gallbladder US Ordered. EDMS 23:07 Amylase Ordered. EDMS 23:07 Basic Metabolic Profile Ordered. EDMS 23:07 CBC with Diff Ordered. EDMS 23:07 Lipase Ordered. EDMS 23:07 Liver Profile Ordered. EDMS 23:08 NOTHING BY MOUTH+DIET ordered. EDMS 23:37 Financial registration complete. slh 23:46 CBC with Diff Reviewed. ef1 23:47 BED REQUEST+ADM ordered. EDMS 05/17 00:01 Piperacillin-Tazobactam 3.375 grams IVPB once over 30 mins; dilute in 50mL of NS or D5W ef1 ordered. 00:01 Basic Metabolic Profile Reviewed. ef1 00:01 Amylase Reviewed. ef1 00:01 Lipase Reviewed. ef1 00:01 Liver Profile Reviewed. ef1 00:24 [facility] [place] was scanned into [employer] and attached to record. slh 00:43 CBC WITH DIFFERENTIAL Ordered. EDMS 00:43 COMPLETE COMPHRENSIVE METABOLI Ordered. EDMS 00:44 Admission / Observation Status ordered. EDMS 00:45 NPO DIET ordered. EDMS 07:19 T-Sheet-- Draft Copy was scanned into [employer] and attached to record. gb 11:54 Radiology Report was scanned into [employer] and attached to record. gb Administered Medications: 05/16 23:24 Drug: NS 0.9% 1000 ml [sodium chloride 0.9 % intravenous solution] Route: IV; Rate: nn1 bolus; Site: left antecubital; 23:25 Drug: Ondansetron 4 mg [ondansetron HCl 2 mg/mL intravenous solution (2 mL)] Route: nn1 IVP; Site: left antecubital; 23:25 Drug: ketorolac 30 mg [ketorolac 30 mg/mL (1 mL) injection solution (1 mL)] Route: IVP; nn1 Site: left antecubital; 05/17 00:21 Drug: Piperacillin-Tazobactam 3.375 grams [piperacillin-tazobactam 3.375 gram nn1 intravenous solution] Route: IVPB; Infused Over: 30 mins; Site: left antecubital; 01:19 Follow up: IV Status: Completed infusion nn1 Signatures: Dispatcher [employer] EDJeniffer Carpenter, Blaine Reg gb Paulina Paez, LIAM PAMarielena ef1 Argelia Crabtree, RN RN ttb McLear, Tiesha, BLUEPRINT DUPLICATOR BLUEPRINT DUPLICATOR tmm1 Perlita Blanco [facility] Roxy Barcenas RN RN nn1 The chart was reviewed and I authenticate all verbal orders and agree with the evaluation and treatment provided.Attachments: 00:24 [facility] Payment Agreement [facility] 07:19 T-Sheet-- Draft Copy Chart Complete MTDD
--- NOTE | 2016-05-19 02:20 | EDDOCDS ---
Physician Documentation [facility] Name: Krissy Adhikari Age: 20 yrs Sex: Male : 1995 Arrival Date: 05/16/2016 Time: 22:15 Bed I3 / M3 Private MD: Other - Complete Info On Cds Disposition: 05/17/16 00:02 Hospitalization ordered by Miguel Valencia for Inpatient Admission. Preliminary diagnosis is Acute cholecystitis. - Bed requested for 5 Mendez. - Status is Inpatient Admission. nn1 - Condition is Stable. - Problem is new. - Symptoms have improved. Historical: - Allergies: no known allergies; - Home Meds: 1. Zantac 150 mg Oral cap 1 cap PRN (Last dose: 05/16/2016 20:00) 2. Tums 200 mg calcium (500 mg) Oral chew 500 mg as needed (Last dose: 05/15/2016) 3. Cipro 500 mg Oral tab 1 tab 2 times per day (Last dose: 05/16/2016 18:00) - PMHx: none; - PSHx: none; - Social history: Smoking status: Patient uses tobacco products, heavy tobacco smoker. Patient/guardian denies using alcohol, street drugs, No barriers to communication noted, The patient speaks fluent Bulgarian, Speaks appropriately for age. - Family history: No immediate family members are acutely ill. - : The pt / caregiver states he / she is not on anticoagulants. Home medication list is obtained from the patient. - Exposure Risk Screening:: None identified. Vital Signs: 05/16 22:17 BP 154 / 77; Pulse 67; Resp 18; Temp 97.0(O); Pulse Ox 100% on R/A; Weight 88.45 kg / gr2 195 lbs (R); Height 6 ft. 1 in. (185.42 cm) (R); Pain 8/10; 05/17 01:09 BP 134 / 80; Pulse 59; Resp 18; Temp 98.5(TE); Pulse Ox 99% on R/A; Pain 0/10; nn1 05/16 22:17 Body Mass Index 25.73 (88.45 kg, 185.42 cm) gr2 MDM: 05/16 23:06 NS 0.9% 1000 ml IV at bolus once ordered. ef1 23:07 Ondansetron 4 mg IVP once ordered. ef1 23:07 ketorolac 30 mg IVP once ordered. ef1 23:07 IV Saline Lock ordered. ef1 23:07 Undress patient appropriately for examination ordered. ef1 23:07 Gallbladder US Ordered. EDMS 23:07 Amylase Ordered. EDMS 23:07 Basic Metabolic Profile Ordered. EDMS 23:07 CBC with Diff Ordered. EDMS 23:07 Lipase Ordered. EDMS 23:07 Liver Profile Ordered. EDMS 23:08 NOTHING BY MOUTH+DIET ordered. EDMS 23:37 Financial registration complete. slh 23:46 CBC with Diff Reviewed. ef1 23:47 BED REQUEST+ADM ordered. EDMS 05/17 00:01 Piperacillin-Tazobactam 3.375 grams IVPB once over 30 mins; dilute in 50mL of NS or D5W ef1 ordered. 00:01 Basic Metabolic Profile Reviewed. ef1 00:01 Amylase Reviewed. ef1 00:01 Lipase Reviewed. ef1 00:01 Liver Profile Reviewed. ef1 00:24 [facility] [place] Agreement was scanned into [employer] and attached to record. slh 00:43 CBC WITH DIFFERENTIAL Ordered. EDMS 00:43 COMPLETE COMPHRENSIVE METABOLI Ordered. EDMS 00:44 Admission / Observation Status ordered. EDMS 00:45 NPO DIET ordered. EDMS 07:19 T-Sheet-- Draft Copy was scanned into [employer] and attached to record. gb 11:54 Radiology Report was scanned into [employer] and attached to record. gb Administered Medications: 05/16 23:24 Drug: NS 0.9% 1000 ml [sodium chloride 0.9 % intravenous solution] Route: IV; Rate: nn1 bolus; Site: left antecubital; 23:25 Drug: Ondansetron 4 mg [ondansetron HCl 2 mg/mL intravenous solution (2 mL)] Route: nn1 IVP; Site: left antecubital; 23:25 Drug: ketorolac 30 mg [ketorolac 30 mg/mL (1 mL) injection solution (1 mL)] Route: IVP; nn1 Site: left antecubital; 05/17 00:21 Drug: Piperacillin-Tazobactam 3.375 grams [piperacillin-tazobactam 3.375 gram nn1 intravenous solution] Route: IVPB; Infused Over: 30 mins; Site: left antecubital; 01:19 Follow up: IV Status: Completed infusion nn1 Signatures: Dispatcher [employer] EDJeniffer Carpenter, Blaine Reg gb Paulina Paez, LIAM PAMarielena ef1 Argelia Crabtree, RN RN ttb McLear, Tiesha, SANITIZER SANITIZER tmm1 Perlita Blanco [facility] Roxy Barcenas RN RN nn1 The chart was reviewed and I authenticate all verbal orders and agree with the evaluation and treatment provided.Attachments: 00:24 [facility] [place] Payment Agreement [facility] 07:19 T-Sheet-- Draft Copy Chart Complete MTDD
--- NOTE | 2016-05-20 07:47 | RO ---
DATE OF PROCEDURE: 05/17/2016 PREOPERATIVE DIAGNOSES: 1. Acute cholecystitis. 2. Cholelithiasis. POSTOPERATIVE DIAGNOSES: 1. Acute cholecystitis. 2. Cholelithiasis. PROCEDURE PERFORMED: Laparoscopic cholecystectomy. SURGEON: Miguel Valencia MD UX CONSULTANT: ANESTHESIA: General anesthesia ESTIMATED BLOOD LOSS: About 25 mL. COMPLICATIONS: None. REMARKS: The patient tolerated the procedure well. FINDINGS: Acutely inflamed but chronically thickened wall. PROCEDURE NOTE: Mr. Adhikari presented to emergency department last night with complaint of sudden onset of epigastric pain radiating to the right side and midback area after eating grilled cheese. He has been having on and off symptoms similar to this. He was found to have evidence for acute cholecystitis. He was admitted overnight started on Unasyn for IV antibiotics. He was counseled for surgery. We reviewed the risks and benefits of the procedure. Consent was obtained. He was brought to the operating room, laid supine on table with compression boots placed on his lower extremities for deep vein thrombosis (DVT) prophylaxis. General endotracheal anesthesia was started without any problems. The abdomen was prepped and draped. A surgical time out was performed. We began our surgery. A short transverse incision was created on top of the umbilicus and deepened through the anterior fascia. A Veress needle was inserted. Intra-abdominal placement confirmed saline drop technique. CO2 insufflation was started to a pressure of 15 mmHg. Using the same incision, a 12 mm Visiport was placed under direct vision of the laparoscope. The insertion site was inspected for injury and none was found. He was then placed on a reverse Trendelenburg position, the right side tilted up to further expose the fundus of the gallbladder. The gallbladder appears moderately distended, mostly chronically thickened with some edema on the wall of the gallbladder consistent with acute cholecystitis. Three 5 mm ports were then placed at the epigastric, midclavicular line and right direct axillary line. The fundus of the gallbladder was grasped. This was elevated superiorly. There were a few omental adhesions that were easily lysed down to the infundibulum. The infundibulum was retracted laterally. The hepatocystic triangle dissected, mostly with [place] instrument. The cystic duct was found and circumferentially dissected. Medial to this, the cystic artery was located and likewise circumferentially dissected. We continued dissection retrogradely behind the neck of the gallbladder, exposing the posterior wall neck of the gallbladder away from the liver bed up until we met the critical view of safety whereby only the duct and the artery are seen coursing through the hepatocystic triangle into the gallbladder. At this point four clips were placed at the cystic artery then divided. Six clips placed along the cystic duct and this was likewise divided. All clips were noted to be in place. The rest the gallbladder was then dissected off the liver bed. This was placed in an EndoCatch bag, retrieved through umbilical port site easily. On reinsufflation we inspected the clips, noted to be in place and a small amount of hematoma was removed. We swept the abdomen looking for injury and none was found. The abdomen was then deflated. All ports removed. The umbilical fascial defect repaired with #0 Vicryl in a mattress fashion. All skin incisions were closed with #4-0 Monocryl in a subcuticular fashion. Steri-Strips and gauze dressings were then placed. The patient was then promptly awakened, extubated, and brought to recovery room stable.
== END 2016-05-18 13:34 | disposition home or self-care (01) | DRG 419 ==
LOC: M ED 22:15 → M ED INP 05-17 00:34 → M MS5PR 05-17 01:25 → M PED 05-17 20:43
PROVIDERS: ADMIT Surgery; ATTEND Surgery
PROC: 0FT44ZZ Resection of Gallbladder, Percutaneous Endoscopic Approach (ICD-10-PCS; principal; 2016-05-17 08:49)
DX: K80.00 Calculus of gallbladder with acute cholecystitis without obstruction (principal); F17.210 Nicotine dependence, cigarettes, uncomplicated